=== PATIENT | male | born 1955 | race Asian ===

== ENCOUNTER 2019-03-12 18:34 | Emergency (ER) | payer OTHER ==
[~2019-03-12] VITALS: Ht 177.8 cm; Wt 78.0 kg
[2019-03-12 18:41] VITALS: Ht 177.8 cm; Wt 78.0 kg
[2019-03-12 20:39] VITALS: BP 145/91
== END 2019-03-12 20:39 | disposition home or self-care (01) ==
LOC: ED 18:34
DX: K08.89 Other specified disorders of teeth and supporting structures (principal)
CPT/HCPCS: J3010; J3490; Q0163